=== PATIENT | female | born 1995 | race African-American/Black ===

== ENCOUNTER 2021-11-15 19:07 | Emergency (ER) | payer OTHER, BC | END 2021-11-15 21:15 | disposition home or self-care (01) | LOC: CSHERS 19:07 | DX: O99.891 Other specified diseases and conditions complicating pregnancy (principal); R10.9 Unspecified abdominal pain; Z3A.19 19 weeks gestation of pregnancy; V89.2XXA Person injured in unspecified motor-vehicle accident, traffic, initial encounter | CPT/HCPCS: 76815 ==